=== PATIENT | male | born 1945 ===

== ENCOUNTER 2024-08-08 12:20 | Outpatient (REF) | payer SELFPAY ==
--- OUTSIDE RECORDS SUMMARY | 2024-08-08 14:08 | XMS_ITS | Data Portability ---
Author Organization [facility], Allergy Address [address] [place] [phone] Care Team Providers Care Medical Record Clerk Name Role Phone ALICIA DANIEL Primary Care Provider Assessment No assessment recorded. Plan of Treatment Reminders Order Date Submit Date Provider Last Modified By Organization Details Last Modified Time Details Appointments None record ed. Lab None record ed. Referral None record ed. Procedures None record ed. Surgeries None record ed. Imaging None record ed. Medication Orders None record ed. Patient TargetsNo targets recorded. Patient InstructionsNo instructions recorded. Reason for Referral None Reported. 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; Note: Date Diagnosed: 06/30/2017 12:14 PM (D48.7) [facility] 4 02:48:51 Dizziness and giddiness 867632246 Active 2017 Dizziness and giddiness; Note: Date Diagnosed: 09/29/2017 10:47 AM (R42) [facility] 02:[facility] Follow-up visit Active 2017 Encounter for follow-up examinatio n after completed treatment for conditions other than malignant neoplasm; Note: Date Diagnosed: 11/10/2017 10:08 AM (Z09) Not Available [facility] 4 02:48:56 Sensorine ural hearing loss of bilateral ears 404550088 Active 2017 Sensorineu ral hearing loss, bilateral; Note: Date Diagnosed: 07/14/2017 1:32 PM (H90.3) Not Available [facility] 4 02:48:49 Anterior epistaxis 335811964 Active 2023 NICOLA PICHARDO MD [address] [place] [address],[address], [phone] , [facility] 08:00:18 Problem Notes None recorded. Procedures Surgical History Date Name Laterality Status Provider Name and Address Organization Details Recorded Time 03/17/20 24 Epistaxis Simple Nasal Cautery Right completed NICOLA PICHARDO MD [address] [place] [address],[address], [phone], [facility] 03/17/2024 16:32:51 excision of lesion of nose completed NICOLA PICHARDO MD [address] [place] [address], [phone], [facility] 03/20/2024 07:59:28 cholecystectomy completed NICOLA PICHARDO MD [address] [place] [address],[address], [phone], [facility] 03/20/2024 07:59:35 Imaging Results None recorded. Procedure Notes None recorded. Medical Equipment None Reported. Allergies Allergen ID Allergen Name Allergen Category Reaction Reaction Severity Criticality Documentation Date Start Date Code Code System Note Provider Name and Address Organization Details Recorded Time [id number] penicilli n V potassium medicatio n other Not available Not available 10/27/2023 5 RxNorm React ion: unkno wn, unspe cifie d;; Not Available [facility] 4 01:08:37 Medications Name Sig Start Date Stop Date Status Note LastModified by Organization Details LastModified Time Vitamin C 500 mg tablet 03/17 completed Medicati on ID: [id number] D uration Value: 30 Brand Name: Vitamin C Send Method: E-Prescr ibed Sub s Allowed: subs OK Speci al Instruct ion: TK 1 T PO BID Medi cationGe nericNam e: Vitamin C Not Available Not Available Not Available azithromy paris 250 mg tablet 03/17 completed Not Available Not Available Not Available lisinopri l 20 mg tablet 2017 active Medicati on ID: [id number] D uration Value: 90 Brand Name: lisinopr il Send Method: E-Prescr ibed Sub s Allowed: subs OK Medic ationGen ericName : lisinopr il Not Available Not Available Not Available sertralin e 100 mg tablet TAKE 1 TABLET BY MOUTH DAILY active Not Available Not Available No t Available amlodipin e 5 mg tablet TAKE 1 TABLET BY MOUTH EVERY DAY active Not Available Not Available No t Available Vitamins B Complex capsule 03/17 completed Medicati on ID: [id number] D uration Value: 90 Brand Name: Vitamins B Complex Send Method: E-Prescr ibed Sub s Allowed: subs OK Speci al Instruct ion: TK 1 C PO D Medica tionGene ricName: Vitamins B Complex Not Available Not Available Not Available baclofen 20 mg tablet TAKE 1 TABLET BY MOUTH TWICE DAILY FOR 14 DAYS NEEDED active Not Available Not Available No t Available tamsulosi n 0.4 mg capsule TAKE 1 CAPSULE BY MOUTH EVERY DAY active Not Available Not Available No t Available amlodipin e 10 mg tablet TAKE 1 TABLET BY MOUTH EVERY DAY 03/17 completed Not Available Not Available Not Available warfarin 5 mg tablet active Not Available Not Available Not Available losartan 25 mg tablet TAKE 1 TABLET BY MOUTH EVERY DAY active Not Available Not Available No t Available gabapenti n 300 mg capsule 09/21 completed Medicati on ID: [id number] D uration Value: 88 Reason: () Brand Name: gabapent in Send Method: E-Prescr ibed Sub s Allowed: subs OK Medic ationGen ericName : gabapent in Not Available Not Available Not Available omeprazol e 20 mg capsule,d elayed release 1 capsule by mouth active Not Available Not Available No t Available chlordiaz epoxide 10 mg capsule TAKE 1 TO 2 CAPSULES BY MOUTH TWICE DAILY NEEDED active Not Available Not Available No t Available mupirocin 2 % topical ointment 1 a small amount to affected area 03/17 completed Medicati on ID: [id number] D uration Value: 14 Prescri bed By Name: Nicola hartman MD Brand Name: nancyroclalo n Send Method: E-Prescr ibed Sub s Allowed: subs OK [facility] : mupiroci n Not Available Not Available Not Available ergocalci ferol (vitamin D2) 1,250 mcg (50,000 unit) capsule 03/17 completed Medicati on ID: [id number] D uration Value: 90 Brand Name: ergocalc iferol (vitamin D2) Send Method: E-Prescr ibed Sub s Allowed: subs OK Speci al Instruct ion: TK 1 C PO D ONCE A WEEK FOR 28 DAYS [facility] me: ergocalc iferol (vitamin D2) Not Available Not Available Not Available atenolol 50 mg tablet TAKE 1 TABLET BY MOUTH EVERY DAY active Not Available Not Available No t Available finasteri de 5 mg tablet TAKE 1 TABLET BY MOUTH EVERY DAY active Not Available Not Available No t Available Cholestyr amine Light 4 gram oral powder MIX 1 SCOOP IN LIQUID AND DRINK BY MOUTH THREE TIMES DAILY active Not Available Not Available No t Available Imodium A-D 2 mg capsule 03/17 completed Medicati on ID: [id number] B rand Name: Imodium A-D Send Method: E-Prescr ibed Sub s Allowed: subs OK Medic ation ericName : Imodium A-D Not Available Not Available Not Available Vitals Date Recorded Body height Body mass index (BMI) Body weight Provider Name and Address Organization Details Last Updated DateTime 03/17/2024 175.26 cm 28.8 kg/m2 70871.51 g Paola Nava MA - [facility] 03/17/2024 15:45:31 Social History None recorded. Functional Status None recorded. Mental Status None recorded. Family History Nothing Reported Notes:Cardiovascular: Heart disease in a female, diagnosed at unknown age - mother. ? Pertinent negatives: hypertension. Endocrine: Diabetes, age at onset unspecified - mother. Medical History Condition Response Hypertension Y Depression Y GERD/Reflux Y Past Encounters Encounter ID Performer Location Encounter Start Date Encounter Closed Date Diagnosis/Indication Diagnosis SNOMED-CT Code Diagnosis ICD10 Code Diagnosis Note NICOLA PICHARDO MD [facility] on [address] [place] [address] 03/17/2024 15:32:02 03/17/2024 16:34:00 Anterior epistaxis 396614555 R04.0 78-year-ol d male, with a history of excision of benign nasal lesion on the right several years ago, anticoagul ation on Coumadin, presents for frequent nosebleeds for about a week, now better for couple weeks or so, but I still see a prominent vessel on the right. He did elect to proceed with cautery which was tolerated well. We had a detailed discussion on nasal humidifica tion with humidifier , saline sprays, saline jelly at night, applied to the outer nares and not with a Qtip. Using pressure and Afrin as needed for a nosebleed was discussed. Health Concerns Section Related Observation LastModified by Organization Detai ls LastModified Time None Recorded Concern Status LastModified by Organization Details LastModified Time None Recorded Advance Directives Directive None Recorded Payers Encounter Date Sequence Insurance Name Policy Number Policy Broussard Covered Member ID Broussard Member ID Guarantor Name 03/17/2024 2 [place] [id number] Elio Wilson [id number] Elio Wilson 03/17/2024 1 [place] [employer] Elio Wilson [id number] Elio Wilson Notes Date Note Type Note Provider Name and Address Organization Details Recorded Time 03/17/2024 text/html Epistaxis every day for a week after noseblowing. None for two weeks. On coumadin, INR 2.6 Previously seen several years ago for excision of a right sided nasal lesion. NICOLA PICHARDO MD [address] [place] [address], [phone], [facility] - [facility] 03/20/2024 08:01:14
[2024-08-08 17:58] LABS: MANUAL DIFF FLAG NO
[2024-08-08 18:12] LABS: Basophils Percent Auto 0.3 % (0-2); Eosinophils Absolute Auto 0.1 X10*3/uL (0.0-0.4); Eosinophils Percent Auto 0.7 % (0-4); Hematocrit 42.2 % (42.0-52.0); Hemoglobin 14.3 g/dl (14.0-18.0); Imm Gran Abs Auto 0.02 X10*3/uL (0.00-0.03); Imm Gran Pct Auto 0.3 % (0.0-0.4); Lymphocytes Absolute Auto 1.8 X10*3/uL (1.2-4.9); Lymphocytes Percent Auto 23.3 % (20-40); Mean Corpuscular HGB Conc 33.9 g/dl (31.0-36.0); Mean Corpuscular Hemoglobin 29.7 pg (27.0-33.0); Mean Corpuscular Volume 87.6 fL (80.0-98.0); Mean Platelet Volume 10.5 fL (9.4-12.4); Monocytes Absolute Auto 0.6 X10*3/uL (0.1-1.2); Monocytes Percent Auto 7.9 % (2-11); Neutrophils Absolute Auto 5.2 x10*3/uL (2.0-8.3); Neutrophils Percent Auto 67.5 % (45-73); Platelet Count 196 X10*3/uL (160-400); Red Blood Count 4.82 X10*6/uL (4.60-5.80); Red Cell Distribution Width 13.3 % (11.0-16.0); White Blood Count 7.6 X10*3/uL (4.8-10.8)
[2024-08-08 18:43] LABS: Alanine Aminotransferase 14 U/L (0-40); Albumin Level 3.8 g/dL (3.5-5.0); Alkaline Phosphatase 100 U/L (39-117); Anion Gap 12 (12-20); Aspartate Amino Transferase 25 U/L (5-37); Bilirubin Total 0.4 mg/dL (0.0-1.0); Blood Urea Nitrogen 21 mg/dL (9-16); C Reactive Protein 0.38 mg/dL (< or = 0.50); Calcium 9.3 mg/dL (8.4-10.2); Carbon Dioxide 24 mmol/L (22-29); Chloride 107 mmol/L (96-108); Estimated Glomerular Filt Rate > 60; Glucose Random 88 mg/dL (60-115); Sodium 139 mmol/L (135-145); Total Protein 7.3 g/dL (6.5-8.0); Uric Acid 5.3 mg/dL (3.4-7.0)
[2024-08-08 18:55] LABS: Rheumatoid Factor < 13.0 IU/mL (<15.0)
[2024-08-08 18:57] LABS: Erythrocyte Sedimentation Rate 14 MM/HR (0-15)
== END 2024-08-08 12:21 | disposition home or self-care (01) ==
LOC: HO.MANLDS 12:20
PROVIDERS: Visit Provider Physician Assistant
DX: R22.33 Localized swelling, mass and lump, upper limb, bilateral (principal)
CPT/HCPCS: 36415; 80053; 84550; 85025; 85652; 86038; 86140; 86431